=== PATIENT | female | born 1965 | race Caucasian/White ===

== ENCOUNTER → 2019-01-20 10:14 | Day surgery (SDC) | payer BC ==
[~2019-01-20 10:14] MED LIST: Buffered Lidocaine 1% SYRIN* 1 ML/SYRINGE INTRADERM ONE; Lactated Ringers 1000 ML Bag* 1,000 ML IV SCH; Lidocaine 2% PF * 5 ML VIAL ONE; Lidocaine 4% TOPICAL* 50 ML TOP.SOLN ONE; Propofol* 10 MG/ML 20 ML BTL ONE; ceFAZolin 1 GM ADVAN(*) 1 GM ADDV.VIAL IVPB ONE; ceFAZolin 2 GM in NS PREMIX(*) 0 GM/0 ML BAG IVPB ONE
[2019-01-20 11:55] VITALS: BP 148/97
--- NOTE | 2019-01-20 14:55 | CONSULT ---
Consult Consult: 53 yo woman with morbid obesity (BMI 56), MONET (desats to 79% on sleep study), insomnia (takes ambien), and who has left shoulder pain and was coming in for a shouler arthroscopy and likely rotator cuff tear. After talking with her about the risks of while taking opioids post operatively without having her CPAP functioning, the pt decided that the risks were not worth the benefit and has decided to delay her case until her CPAP machine has been fixed. I have spoken with both her PCP and presto log operator to help facilitate that happening in a timely manner.
== END | disposition home or self-care (01) ==
LOC: OR 10:14
PROVIDERS: ATTEND Orthopaedic Surgery
DX: S46.012A Strain of muscle(s) and tendon(s) of the rotator cuff of left shoulder, initial encounter (principal); Z53.09 Procedure and treatment not carried out because of other contraindication; G47.33 Obstructive sleep apnea (adult) (pediatric); E66.01 Morbid (severe) obesity due to excess calories; E11.9 Type 2 diabetes mellitus without complications; Z87.891 Personal history of nicotine dependence; W19.XXXA Unspecified fall, initial encounter; Y92.9 Unspecified place or not applicable
CPT/HCPCS: J0690; J2704

== ENCOUNTER 2019-01-25 05:48 | Observation (INO) | payer BC ==
[~2019-01-25 05:48] MED LIST changes: -Lactated Ringers 1000 ML Bag* 1,000 ML IV SCH; -Lidocaine 2% PF * 5 ML VIAL ONE; -Lidocaine 4% TOPICAL* 50 ML TOP.SOLN ONE; -Propofol* 10 MG/ML 20 ML BTL ONE; -ceFAZolin 1 GM ADVAN(*) 1 GM ADDV.VIAL IVPB ONE; -ceFAZolin 2 GM in NS PREMIX(*) 0 GM/0 ML BAG IVPB ONE
[2019-01-25] MEDS ORDERED: celeCOXIB CAP* 200 MG PO ONE (06:00)
[2019-01-25] MEDS ORDERED: Lactated Ringers 1000 ML Bag* 1,000 ML IV SCH ×2 (06:00→12:00)
[2019-01-25] MEDS ORDERED: Gabapentin CAP(*) 300 MG PO ONE (06:00)
[2019-01-25] MEDS ORDERED: Famotidine TAB* 20 MG PO ONE (06:00)
[2019-01-25] MEDS ORDERED: Metoclopramide IV* 5 MG/ML 2 ML VIAL IV SLOW PU ONE (06:00)
[2019-01-25] MEDS ORDERED: Dexamethasone IV* 4 MG/ML 1 ML (4 MG) ONE (06:24)
[2019-01-25] MEDS ORDERED: Famotidine TAB* 20 MG ONE (06:25)
[2019-01-25] MEDS ORDERED: Buffered Lidocaine 1% SYRIN* 1 ML/SYRINGE INTRADERM ONE (06:25)
[2019-01-25] MEDS ORDERED: celeCOXIB CAP* 200 MG ONE (06:25)
[2019-01-25] MEDS ORDERED: ceFAZolin 1 GM ADVAN(*) 1 GM ADDV.VIAL IVPB ONE (06:25)
[2019-01-25] MEDS ORDERED: Gabapentin CAP(*) 300 MG ONE (06:25)
[2019-01-25] MEDS ORDERED: ceFAZolin 2 GM in NS PREMIX(*) 2 GM/100 ML BAG IVPB ONE (06:25)
[2019-01-25] MEDS ORDERED: Metoclopramide IV* 5 MG/ML 2 ML VIAL ONE (06:26)
[2019-01-25] MEDS ORDERED: Scopolamine 1.5 mg* PATCH ONE (07:08)
[2019-01-25] MEDS ORDERED: EPINEPHRINE 1 MG/ML 1 ML VIAL ONE (07:17)
[2019-01-25] MEDS ORDERED: Bupivacaine 0.5% W/EPI SDV* 30 ML VIAL ONE (07:18)
[2019-01-25] MEDS ORDERED: fentaNYL* 50 MCG/ML 2 ML VIAL (100 MCG VIAL) ONE (07:22)
[2019-01-25] MEDS ORDERED: Midazolam* 1 MG/ML 2 ML VIAL (2 MG) ONE (07:22)
[2019-01-25] MEDS ORDERED: Rocuronium* 10 MG/ML VIAL ONE (07:22)
[2019-01-25] MEDS ORDERED: Lidocaine 1%** 5 ML VIAL ONE (07:24)
[2019-01-25] MEDS ORDERED: ROPIVACAINE 5 MG/ML 30 ML BTL (0.5%) ONE (07:24)
[2019-01-25] MEDS: Dexamethasone IV* 4 MG/ML 1 ML (4 MG) IV SLOW PU ONE (07:39)
[2019-01-25] MEDS ORDERED: PROCHLORPERAZINE INJ 5 MG/ML 2 ML VIAL IV PRN (08:35)
[2019-01-25] MEDS ORDERED: Ketorolac INJ* 30 MG/ML 1 ML VIAL IV PRN (08:35)
[2019-01-25] MEDS ORDERED: Naloxone* 0.4 MG/ML 1 ML VIAL IV PRN (08:35)
[2019-01-25] MEDS ORDERED: oxyCODONE TAB* 5 MG TAB PO PRN (08:35)
[2019-01-25] MEDS ORDERED: Acetaminophen IV 1GM/100ML * 1,000 MG/100 ML VIAL IVPB ONE (08:35)
[2019-01-25] MEDS ORDERED: HYDROmorphone INJ1* 1 MG/ML SYRINGE IV PRN (08:35)
[2019-01-25] MEDS ORDERED: fentaNYL* 50 MCG/ML 2 ML VIAL (100 MCG VIAL) IV PRN (08:35)
[2019-01-25] MEDS ORDERED: DiMENhydriNATE IV* 50 MG/ML VIAL IV PUSH PRN (08:35)
[2019-01-25] MEDS ORDERED: Scopolamine 1.5 mg* PATCH TRANSDERM SCH (09:00)
[2019-01-25] MEDS ORDERED: Succinylcholine* 20 MG/ML 10 ML VIAL ONE (09:20)
[2019-01-25] MEDS ORDERED: Phenylephrine 40 MCG/ML SYRINGE ONE (09:20)
[2019-01-25] MEDS ORDERED: Propofol* 10 MG/ML 20 ML BTL ONE (09:20)
[2019-01-25] MEDS ORDERED: Lidocaine 2% PF * 5 ML VIAL ONE (09:20)
[2019-01-25] MEDS ORDERED: EPHEDrine (Pressors)* 50 MG/ML VIAL ONE (09:20)
[2019-01-25] MEDS ORDERED: Ondansetron INJ* 2 MG/ML VIAL ONE (10:21)
[2019-01-25] MEDS ORDERED: Levalbuterol 1.25MG/0.5ML NEB ONE (11:01)
[2019-01-25] MEDS ORDERED: Ondansetron INJ* 2 MG/ML VIAL IV PRN (11:13)
[2019-01-25] MEDS ORDERED: diPHENhydraMINE PO* 25 MG PO PRN (11:13)
[2019-01-25] MEDS ORDERED: traMADol TAB* 50 MG PO PRN (11:13)
[2019-01-25] MEDS ORDERED: Acetaminophen TAB* 325 MG PO PRN (11:13)
[2019-01-25] MEDS ORDERED: Fluticasone-Salmeterol 100-50* DISKUS INH PRN (11:22)
[2019-01-25] MEDS ORDERED: Zolpidem TAB* 5 MG PO PRN (11:22)
[2019-01-25] MEDS ORDERED: oxyCODONE/Acetamin 5/325 MG* TAB PO PRN (11:25)
[2019-01-25] MEDS ORDERED: Morphine INJ* 2 MG/ML 1 ML SYRINGE (TWO MG - NEW SYRINGE VERSION) IV PRN (11:25)
[2019-01-25] MEDS ORDERED: Levalbuterol 1.25MG/0.5ML NEB INH ONE (12:09)
--- NOTE | 2019-01-25 16:17 | CONS ---
CC: Dr. Mattson; Dr. Olsen * CONSULTATION REPORT: DATE OF CONSULT: 01/25/19 REQUESTING PHYSICIAN: Dr. Olsen. PRIMARY CARE PROVIDER: Dr. Mattson. REASON FOR CONSULT: Management of hypertension and obstructive sleep apnea in patient of post rotator cuff surgery on the left. CHIEF COMPLAINT: Left shoulder pain. HISTORY OF PRESENT ILLNESS: Toyin Thornton is a 53-year-old female with history of obesity, obstructive sleep apnea, diet-controlled diabetes, who presented today for elective left rotator cuff surgery. That was performed by Dr. Olsen. It was decided that the patient will stay postoperatively overnight. A medicine consult was requested due to patient's chronic medical conditions. PAST MEDICAL HISTORY: 1. History of hypertension. 2. Diet-controlled diabetes. 3. Obstructive sleep apnea, on CPAP. 4. Obesity. 5. History of Cecilia-en-Y surgery. 6. Carpal tunnel surgery. 7. Bilateral plantar fascitis surgery. 8. Tonsillectomy and adenoidectomy. 9. Hysterectomy. 10. History of oophorectomy. 11. History of . MEDICATIONS AT HOME: Include: 1. Oxycodone with acetaminophen on a p.r.n. basis. 2. Vitamin B12 at 1000 mcg injection monthly. 3. Advair 100/50 one inhalation b.i.d. 4. Lipitor 5 mg daily. 5. Lisinopril but patient is not taking currently. 6. Meloxicam 15 mg through inhaler on p.r.n. basis. 7. Vitamin B12 at 1000 mcg daily. 8. Zoloft 200 mg daily. 9. Ambien 5 mg at night p.r.n. 10. Ultram 50 mg every 8 hours p.r.n. ALLERGIES: METFORMIN, caused diarrhea. The patient also has local skin irritation to TAPE. FAMILY HISTORY: Positive for mother with history of diabetes and heart disease , is at 67, who is doing well. SOCIAL HISTORY: The patient quit smoking over 30 years ago. The patient denies any alcohol or drug use. She notes that her surrogate is her sister. REVIEW OF SYSTEMS: Please see history of present illness. All the remaining 12 systems were reviewed with the patient and were otherwise negative. PHYSICAL EXAM: Blood pressure of 133/61, heart rate of 92 and regular, respiratory rate 15, oxygen saturation 95% on room air, temperature of 97.0. General: The patient is a pleasant 53-year-old female who is in no acute distress. Alert, awake and oriented x3. HEENT: Head: Atraumatic, normocephalic. Eyes: Pupils are equal and reactive to light and accommodation. Oropharynx clear. Mucosa moist. Neck: Supple. No JVD. No bruits bilaterally. Cardiovascular: Regular rate and rhythm, no murmur. Respiratory: Clear to auscultation bilaterally. Abdomen: Soft, nontender. Bowel sounds are present in all 4 quadrants. Extremities: The left shoulder is in a cryo unit and postoperative dressings were not removed. There was trace ankle edema in bilateral lower extremities. There is no clubbing or cyanosis. Psychiatric Evaluation: Oriented x3. No evidence of anxiety or depression. DIAGNOSTIC STUDIES/LAB DATA: Current laboratory data: Patient's glucose level was 70 at admission. ASSESSMENT AND PLAN: 1. Postoperative management after rotator cuff surgery as per Dr. Olsen. 2. In regard to the patient's history of obstructive sleep apnea, the patient is going to be continued on her own CPAP at night. 3. In regard to the patient's hypertension, apparently the patient is not taking her lisinopril; either way we would hold it for the time being. 4. For diet controlled diabetes, recommend diabetic diet but I believe the patient needs to be placed on a sliding scale. 5. In regard to the DVT prophylaxis, as per orthopedic service. 6. Code status is full. Her surrogate is her sister, Isamar Cha. Thank you very much for allowing our service to see your patient in consultation. We will follow on an as needed basis. Please call if any issues arise. TIME SPENT: Approximately 60 minutes was spent on consultation of this patient ; more than half of that time was spent [id number] with the patient during the interview and physical exam. [id number]/CPS #: [id number] MTDD
[2019-01-25] MEDS: oxyCODONE/Acetamin 5/325 MG* TAB PO PRN ×2 (20:36→23:56)
[2019-01-25] MEDS ORDERED: Sertraline* 100 MG TAB PO SCH (21:00)
[2019-01-25] MEDS ORDERED: Lisinopril TAB* 5 MG PO SCH (21:00)
[2019-01-26] MEDS: oxyCODONE/Acetamin 5/325 MG* TAB PO PRN ×3 (02:59→08:59)
--- NOTE | 2019-01-26 10:58 | PN ---
Progress Note - Progress Note Date of Service: 01/26/19 SOAP: Subjective: OOB to chair, pain controlled with current pain regimen Objective: Vital Signs Temp Pulse Resp BP Pulse Ox 97.8 F 66 14 92/40 94 01/26/19 07:17 01/26/19 07:18 01/26/19 10:36 01/26/19 07:17 01/26/19 08:00 Laboratory Last Values POC Glucose (mg/dL) 70 mg/dL (70-100) 01/25/19 07:11 incision: c/d/i PE: able to demonstrate thumbs up, cross finger sign, A-OK; intact sensation, 2 + DR pulse Assessment: s/p left shoulder arthroscopy with RTC repair Plan: 1) Home today; f/u with Pretty in 10-14 days 2) Keep dressing clean, dry and intact until Wednesday, may remove Wednesday and shower(only) 3) OT today prior to DC 4) Immobilizer at all times, ALEJANDRA ANN
[2019-01-26 11:33] VITALS: BP 100/44
--- NOTE | 2019-01-26 12:26 | DS ---
DISCHARGE SUMMARY: DATE OF ADMISSION: 01/25/19 DATE OF DISCHARGE: 01/26/19 SURGEON: Ryder Olsen MD.* (DICTATED BY ASHLEIGH SNEED) PRINCIPAL DIAGNOSIS: Left shoulder rotator cuff tear. DISCHARGE DIAGNOSIS: Left shoulder rotator cuff tear. DISCHARGE DISPOSITION: Discharged to home in stable condition. HISTORY OF PRESENT ILLNESS: Ms. Thornton is a 53-year-old female with left shoulder pain secondary to rotator cuff tear. She elected to proceed with surgery. HOSPITAL COURSE: Ms. Thornton was admitted electively to the hospital on after a left shoulder arthroscopy with rotator cuff repair for monitoring of her respiratory status secondary to severe sleep apnea. Overnight, she did well. She had no difficulty breathing and her oxygen sats were all within normal limits. At the time of discharge, she was afebrile and her vital signs were stable and her pain was well controlled. DISCHARGE MEDICATIONS: 1. Percocet 5/325 one every 6 hours as needed for pain. 3. Lisinopril 5 mg q.h.s. 3. Advair Diskus as needed. 4. Zoloft 200 mg q.h.s. 5. Ambien 5 mg q.h.s. as needed. PHYSICAL EXAM UPON DISCHARGE: The wound was clean and dry. She was able to demonstrate thumbs up, A-OK and crossed finger sign. She had intact sensation, 2+ distal radius pulse. Full range of motion of the left elbow, wrist, and hand. DISCHARGE INSTRUCTIONS: She was discharged home. She was given Percocet every 4 to 6 hours as needed for pain. She will remain in the immobilizer at all times with no range of motion of the left shoulder and nonweightbearing of the left upper extremity. She can come out of the sling 2 to 3 times a day to work on range of motion of the elbow, wrist, and hand only. She will follow up with Dr. Olsen in 10 to 14 days. ASHLEIGH SNEED [id number]/[facility] #: [id number] MTDD
--- NOTE | 2019-01-27 00:23 | OP ---
DATE OF OPERATION: 01/26/19 - ROOM #343 DATE OF : 65 SURGEON: Ryder Olsen MD SKIVER BLOCKERS: ASHLEIGH Lechuga. A physician nursing home assistant administrator was required for the length of procedure for assistance with patient positioning, retraction, instrumentation and closure. ANESTHESIOLOGIST: Dr. Mc Schmidt. ANESTHESIA: General anesthesia, regional interscalene block anesthesia. PRE-OP DIAGNOSES: 1. Left shoulder rotator cuff tendon tear, supraspinatus, high-grade partial tear versus full-thickness tear. 2. Left shoulder subacromial impingement and bursitis. 3. Left shoulder acromioclavicular joint osteoarthritis. 4. Left shoulder possible proximal biceps tendinitis and/or superior labral tear. POST-OP DIAGNOSES: 1. Left shoulder rotator cuff tendon tear, supraspinatus, high-grade partial thickness under sided tear with some retraction. 2. Left shoulder subacromial impingement and bursitis. 3. Left shoulder acromioclavicular joint osteoarthritis. 4. Left shoulder unstable superior labral tear and biceps tendinosis. OPERATIVE PROCEDURE: 1. Left shoulder arthroscopic rotator cuff tendon repair, supraspinatus, double - row. 2. Left shoulder arthroscopic subacromial decompression. 3. Left shoulder arthroscopic distal clavicle resection. 4. Left shoulder arthroscopic limited debridement including release of biceps tendon and debridement of superior labrum. ANTIBIOTICS: Ancef 3 g IV. IV FLUIDS: See Anesthesia note. SKIN TO SKIN TIME: 111 minutes. SPECIMEN: None. IMPLANTS: Arthrex 5.5 mm suture anchors, loaded with 2 fiber tape each. Two of these were placed. Arthrex SwiveLock 4.75 mm placed in a lateral row position. I used 1 of the #2 FiberWire from that anchor. COMPLICATIONS: None. ESTIMATED BLOOD LOSS: Minimal. 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 The patient first saw one of my colleagues who ordered an MRI scan to evaluate for rotator cuff tear. She then saw me in clinic. The patient had pain so significant that she was wearing a sling preoperatively. MRI demonstrated high-grade partial tear or possibly a full- thickness tear of the supraspinatus with some retraction as well as tendinopathy of the subscapularis and degenerative changes of the acromion and AC joint. I discussed nonoperative versus operative treatment with the patient, and we opted for operative treatment given the patient's pain and the high-grade partial thickness nature of this tear with retraction. The patient was originally scheduled for surgery on 01/20/19. However, concerns regarding her CPAP functioning and anesthesia concerns over her safety postoperatively, dictated a delay in surgery until today. The patient was optimized by her primary care physician. Decision was made to move forward with surgery. Anesthesia was comfortable with it as was I. Discussed risks and potential complications of surgery. Discussed treatment of biceps tendon and we decided on biceps release versus tenodesis if any treatment of superior labrum or biceps were required. DESCRIPTION OF PROCEDURE: In preoperative holding, the patient signed a written consent. Operative extremity was marked in the preoperative holding. The patient underwent regional interscalene nerve block by anesthesia in preoperative holding. Taken back to the operating room and placed supine on operating room table. Sedated and intubated. The patient was converted to a lateral decubitus position. Armenta bag hardened. All bony prominences padded. Longitudinal traction time of 15 pounds with the appropriate amount of shoulder forward flexion and abduction. The left shoulder was prepped and draped. Surgical time-out was performed. We used the spinal needle, placed it into anterior glenohumeral joint and infused 30 cc of normal saline and then established posterior glenohumeral joint portal using standard technique. Commenced diagnostic arthroscopy. No articular cartilage lesions. No loose bodies. The patient clearly had some tearing at the superior labrum as well as, more distally, some irritation of the long head biceps tendon. Immediately obvious was high-grade injury to the supraspinatus. I thought it was a full-thickness tear and viewed through the joint. I detected at least 10 to 15 mm of bare footprint and I with myself to be viewing through the tendon up into the subacromial space. I moved to subscapularis in a variety of humeral head positions. There was indeed some thickening and there was no tearing of the subscapularis tendon. I was very happy with that. I made an anterior glenohumeral joint portal under direct visualization. I smoothed out some rotator cuff interval tissue about the subscapularis to best visualize it. We used arthroscopic scissors to cut the long-headed biceps tendon just off its origin. Next, we used arthroscopic shaver to smooth out the unstable superior labral tear. I moved from the glenohumeral joint to the subacromial space. I established the anterior and posterior portals. I established lateral and then posterolateral portals under direct visualization. There was much bursitis in the subacromial space. This was debrided with arthroscopic shaver. My first view of the supraspinatus from bursal side showed no clear tear. This was surprising given my intraarticular view of the subacromial space. I have found that this will happen occasionally with very high-grade tears where fluid from within the joint enable a trans tendon view that is not visualized or otherwise. I lightly probed the tendon and found there was only wisp of bursal- sided tissue intact. I easily punched that with arthroscopic probe. Viewing the width of the supraspinatus, it was clear that there was only a small amount of tendons that were attached on the bursal side. I debrided the footprint as well as the end of the tendon with arthroscopic shaver. I prepped the footprint with VAPR and then arthroscopic bur. The tendon tear was wide enough to warrant a double-row repair. I made superolateral poke holes and placed my anchors at the medial most aspect of the footprint, each 5.5 mm anchors loaded with FiberTape. I passed horizontal mattress stitches with the FiberTape from these anchors. I passed all 4 stitches before tying any of them. I then tied these. Excellent tendon to bone apposition. I thought there was still some tendon just anterior to my anterior most stitch that would benefit from additional fixation. I provided this with my lateral load anchor. I first loaded 4 suture tapes from the medial row and placed them into a lateral row single anchor using a SwiveLock 4.75 anchor. I placed anchor. I have then used one of these FiberWire #2 sutures from the lateral anchor and placed a horizontal mattress stitch into the anterior most aspect of the supraspinatus. Tendon stable to bone with movement of the shoulder and with probing. I started it before, but I finished off my subacromial decompression, flattening out the anterior aspect of the acromion with an arthroscopic bur. I moved to the AC joint. Debrided bursitis with VAPR and then debrided 8 mm distal into the distal clavicle with an arthroscopic bur. Removed fluid and instruments from subacromial space. Closed skin incision with [id number] 12 stitches using nylon 3-0 suture. Xeroform, 4x4s, ABDs, foam tape, sling. Because of body habitus, I was not sure whether the abduction pillow was required. I did not think so, but left it with the patient. The patient was awakened, extubated and taken to PACU. DISPOSITION: Postoperatively, despite it being very early in the day, given the patient's baseline preoperative sleep apnea with O2 saturation of 79% with sleep off of the CPAP machine and BMI together with general anesthesia and regional interscalene block, Anesthesia thought it would be prudent for the patient to be admitted postoperatively for respiratory monitoring as well as pain control. I thought that this was prudent and admitted the patient to my service. The patient is to receive oral and IV pain medication as needed and was to see occupational therapy and was to be admitted under observation, hopefully discharge on postoperative day 1. The patient will not start physical therapy. She will see me in the office in approximately 10 to 14 days postoperatively. Wound care instructions provided. [id number]/[facility]PS #: [id number] MARY
== END 2019-01-26 12:43 | disposition home or self-care (01) ==
LOC: OR 05:48 → SSU 11:13
PROVIDERS: ADMIT Orthopaedic Surgery; ATTEND Orthopaedic Surgery
DX: M75.122 Complete rotator cuff tear or rupture of left shoulder, not specified as traumatic (principal); I10 Essential (primary) hypertension; E11.9 Type 2 diabetes mellitus without complications; G47.33 Obstructive sleep apnea (adult) (pediatric); E66.9 Obesity, unspecified; Z79.899 Other long term (current) drug therapy; M75.52 Bursitis of left shoulder; M19.012 Primary osteoarthritis, left shoulder
CPT/HCPCS: A9270-GY; G0378; J0330; J0690; J1100; J2250; J2405; J2704; J2765; J2795; J3010

== ENCOUNTER 2022-02-25 10:11 | Observation (INO) ==
[~2022-02-25 10:11] MED LIST changes: +Buffered Lidocaine 1% SYRIN 1 ml INTRADERM ONE; -Buffered Lidocaine 1% SYRIN* 1 ML/SYRINGE INTRADERM ONE; +HYDROcodone/ACETAMIN 5/325 mg TAB PO PRN; +Lactated Ringers 1000 ml BAG 1,000 ML IV SCH; +Metoclopramide 5 MG/ML VIAL (10 mg) IV PRN; +Naloxone 0.4 mg VIAL 0.4 mg/ml 1 ml VIAL IV PRN; +Ondansetron 4 mg VIAL 2 MG/ML 2 ml VIAL IV PRN
[2022-02-25] MEDS ORDERED: ceFAZolin 2 GM in NS PREMIX 2 GM/100 ML BAG IVPB ONE (11:26)
[2022-02-25] MEDS ORDERED: ceFAZolin 1 GM in Dextrose 1 GM/50 ML BAG ONE (12:25)
[2022-02-25] MEDS ORDERED: fentaNYL 100 mcg/2 ml 50 MCG/ML VIAL ONE ×5 (13:34→18:44)
[2022-02-25] MEDS ORDERED: Midazolam 2 mg/2 ml VIAL 1 mg/ml 2 ml VIAL (2 mg) ONE ×2 (13:34→17:16)
[2022-02-25] MEDS ORDERED: Lidocaine 2% PF 5 ML VIAL ONE (13:34)
[2022-02-25] MEDS ORDERED: ROPIVACAINE 5 MG/ML 30 ML BTL (0.5%) ONE (13:39)
[2022-02-25] MEDS ORDERED: Propofol 10 MG/ML 20 ML BTL ONE ×2 (14:25→18:05)
[2022-02-25] MEDS ORDERED: Rocuronium 50 mg VIAL 10 mg/ml 5 ml VIAL (50 mg) ONE (14:25)
[2022-02-25] MEDS ORDERED: fentaNYL 250 mcg/5 ml 50 MCG/ML 5 ml VIAL (250 MCG) ONE (14:31)
[2022-02-25] MEDS ORDERED: Sevoflurane BOTTLE ONE (14:43)
[2022-02-25] MEDS ORDERED: Ondansetron 4 mg VIAL 2 MG/ML 2 ml VIAL ONE ×3 (14:45→19:25)
[2022-02-25] MEDS ORDERED: Dexamethasone IV 4 MG/ML VIAL 1 ml VIAL ONE ×2 (14:45→15:03)
[2022-02-25] MEDS ORDERED: Acetaminophen IV 1 GM/100ML 100 ML IV ONE (15:10)
[2022-02-25] MEDS ORDERED: fentaNYL 100 mcg/2 ml 50 MCG/ML VIAL IV PRN (15:35)
[2022-02-25] MEDS ORDERED: Naloxone 0.4 mg VIAL 0.4 mg/ml 1 ml VIAL IV PRN (15:35)
[2022-02-25] MEDS ORDERED: Ondansetron 4 mg VIAL 2 MG/ML 2 ml VIAL IV PRN ×2 (15:35→20:51)
[2022-02-25] MEDS ORDERED: hydrALAZINE 20 mg/ml 1 ML Vial IV ONE (18:10)
[2022-02-25] MEDS ORDERED: Sterile Water for Inj 10 ML ONE (18:10)
[2022-02-25] MEDS: fentaNYL 100 mcg/2 ml 50 MCG/ML VIAL IV PRN ×2 (18:46→18:53)
[2022-02-25] MEDS ORDERED: Ondansetron ODT 4 mg TAB 4 MG TAB PO PRN (20:51)
[2022-02-25] MEDS ORDERED: Lactulose 30 ml UDC PO PRN (20:51)
[2022-02-25] MEDS ORDERED: Magnesium Hydroxide LIQ 30 ML UDC PO PRN (20:51)
[2022-02-25] MEDS ORDERED: Lactated Ringers 1000 ml BAG 1,000 ML IV SCH (21:00)
[2022-02-25] MEDS ORDERED: Mometasone/Formoter 100/5 MDI INH PRN (21:03)
[2022-02-25] MEDS ORDERED: NON FORMULARY MED (Semaglutide [Ozempic] 0.25 mg or 0.5 mg(2 mg/1.5 mL) Pen Injector) SUBCUT SCH (21:15)
[2022-02-25] MEDS: Magnesium Hydroxide LIQ 30 ML UDC PO SCH (23:18)
[2022-02-25] MEDS: ceFAZolin 1 GM ADVAN 1 GM in NS 0.9% 50 ML 50 ML IVPB SCH (23:57)
[2022-02-26] MEDS: ceFAZolin 1 GM ADVAN 1 GM in NS 0.9% 50 ML 50 ML IVPB SCH ×2 (06:14→14:41)
[2022-02-26 06:35] LABS: Hematocrit 37 % (35-47); Mean Platelet Volume 9.6 fL (7.4-10.4); Platelet Count 230 10^3/uL (150-450)
[2022-02-26 06:50] LABS: Calcium 8.6 mg/dL (8.6-10.3); Potassium 4.3 mmol/L (3.5-5.0); eGFR CKD-EPI 101.2 (>60)
[2022-02-26] MEDS ORDERED: Vitamin THERAPEUTIC TAB PO SCH (09:00)
[2022-02-26] MEDS: Magnesium Hydroxide LIQ 30 ML UDC PO SCH (09:18)
[2022-02-26] MEDS ORDERED: Enoxaparin 40 MG/0.4 ML SYR SUBCUT SCH (12:00)
[2022-02-26 15:31] VITALS: BP 108/55
== END 2022-02-26 15:50 | disposition home or self-care (01) ==
LOC: SSU 10:11 → OR 10:11
PROVIDERS: ADMIT Orthopaedic Surgery; ATTEND Orthopaedic Surgery